=== PATIENT | female | born 1995 | race Two or more races ===

== ENCOUNTER → 2016-03-03 | Outpatient (CLI) | payer OTHER ==
[2016-03-03 17:48] LABS: AMPHETAMINES/METAMPHETAMINES NEGATIVE ng/mL (<1000)
[2016-03-03 18:05] LABS: HEMOGLOBIN 13.6 g/dL (12.2-16.2); LYMPH # 1.9 K/mm3 (0.7-4.5); LYMPH % 18.5 % (10-50.0)
[2016-03-03 18:22] LABS: BUN 6 mg/dL (7-18)
[2016-03-03 18:23] LABS: GFR (ESTIMATED) 125 ML/MIN (59-)
[2016-03-04 14:07] LABS: HEPATITIS A VIRUS ANTIBODY NON-REACTIVE (NON-REACTIVE); HEPATITIS B SURFACE ANTIG NON-REACTIVE (NON-REACTIVE)
== END ==
LOC: LAB 17:12
PROVIDERS: Nurse Practitioner Family
DX: E66.9 Obesity, unspecified (principal); Z13.9 Encounter for screening, unspecified